=== PATIENT | female | born 1950 | race Caucasian/White ===

== ENCOUNTER 2020-02-24 11:13 | Outpatient (CLI) | payer MEDICARE ==
--- NOTE | 2020-02-24 12:35 | RAD ---
XR Chest Pa Lat STANDARD HISTORY: Simple chronic bronchitis. Cough COMPARISON: None FINDINGS: The heart size is normal. The aorta is tortuous. The lungs are well expanded without focal areas of consolidation, pneumothorax or pleural effusions. There is a masslike density in the right infrahilar region. Further evaluation with CT scan should be performed.
== END 2020-02-24 11:14 | disposition home or self-care (01) ==
LOC: BICRAD 11:13
PROVIDERS: ATTEND Family Medicine
DX: J41.0 Simple chronic bronchitis (principal)
CPT/HCPCS: 36415; 71046; 80053; 80061; 83036; 84439; 84443

== ENCOUNTER 2020-03-08 08:04 | Outpatient (CLI) | payer MEDICARE ==
--- NOTE | 2020-03-08 09:53 | CT ---
Ct chest without contrast: INDICATION: Abnormal chest x-ray. COMPARISON: Correlation is made to chest x-ray of 02/24/2020 which revealed abnormal density in the medial right l ower lung. FINDINGS: CT does confirm a pleural-based mass which is located in a paravertebral location posterior right low er lobe probably superior segment extending to the infrahilar region. This mass encompasses the prox imal right lower lobe bronchus in the infrahilar region. This mass is measured at 5.5 cm AP dimensio n in the axial plane. It does have a paravertebral location; however, no evidence of osseous destruc tion or involvement is identified. Lungs otherwise reveal a calcified granuloma in the peripheral left upper lobe near the pleural surfa ce measuring 6 mm. There are chronic parenchymal changes. No effusion. No evidence of inflammatory infiltrate. There is a hazy ground-glass nodule in the right upper lobe measuring 8 mm in the coronal plane seen on axial image 45 and coronal image 42. There is a 4-5 mm soft tissue nodule in the right mid lung adjacent to the fissure located in the rig ht middle lobe in the mid lung field seen axial 69 and coronal 31. There is a 4 mm nodule in the anterior right mid to lower lung seen on axial image 88 located in the anterior right middle lobe. Mediastinum shows nonspecific lymph nodes. There is a paratracheal lymph node at the chinedu measurin g 1.3 cm. Images through the upper abdomen reveal numerous calcified gallstones layering dependently within the gallbladder fundus. The very last image shows a low-density lesion in the inferior right lobe of th e liver posteriorly measuring 1.3 cm. This is indeterminate and is incompletely evaluated on this st udy. Osseous structures appear unremarkable. IMPRESSION: 1. A pleural-based mass in the posterior medial right lower lobe which has a paravertebral location as described above. This mass is consistent with neoplasm and would be amenable to CT-directed biops y. 2. There are other scattered pulmonary nodules seen as described above. 3. Cholelithiasis. 4. A low-density lesion in the inferior right lobe of the liver which is incompletely evaluated on t his study. POS: AH
== END 2020-03-08 08:05 | disposition home or self-care (01) ==
LOC: BICCT 08:04
PROVIDERS: ATTEND Family Medicine
DX: R91.8 Other nonspecific abnormal finding of lung field (principal); K80.20 Calculus of gallbladder without cholecystitis without obstruction
CPT/HCPCS: 71250

== ENCOUNTER 2020-03-23 08:03 | Outpatient (CLI) | payer MEDICARE ==
--- NOTE | 2020-03-23 08:37 | MMO ---
Bilateral MAMMO Bilat Screen [facility]. CLINICAL HISTORY: Patient is 69 years old and is seen for screening. The patient has the following family history of breast cancer: sister, at age 45. The patient has no personal history of cancer. VIEWS: The views performed were: bilateral craniocaudal with tomosynthesis and bilateral mediolateral oblique with tomosynthesis. This study has been interpreted with the assistance of computer-aided detection. MAMMOGRAM FINDINGS: There are scattered fibroglandular densities. There are benign appearing calcifications seen in both breasts. There are no suspicious masses, suspicious calcifications, or areas of architectural distortion. IMPRESSION: THERE IS NO MAMMOGRAPHIC EVIDENCE OF MALIGNANCY. A ROUTINE FOLLOW-UP MAMMOGRAM IN 1 YEAR IS RECOMMENDED. THE RESULTS OF THIS EXAM WERE SENT TO THE PATIENT. ACR BI-RADS Category 2 - Benign finding MAMMOGRAPHY NOTE: 1. A negative mammogram report should not delay a biopsy if a dominant of clinically suspicious mass is present. 2. Approximately 10% to 15% of breast cancers are not detected by mammography. 3. Adenosis and dense breasts may obscure an underlying neoplasm. Reported by: JANES ROBINS MD Electonically Signed: [id number]
== END 2020-03-23 08:04 | disposition home or self-care (01) ==
LOC: BICMAMMO 08:03
PROVIDERS: ATTEND Family Medicine
DX: Z12.31 Encounter for screening mammogram for malignant neoplasm of breast (principal); Z80.3 Family history of malignant neoplasm of breast
CPT/HCPCS: 77063; 77067

== ENCOUNTER 2020-04-17 09:00 | Outpatient (CLI) | payer MEDICARE ==
--- NOTE | 2020-04-17 11:57 | PET ---
Nuclear medicine FDG PET/CT: (Positron emission tomography and computed tomography) DATE: 04/17/2020 HISTORY: 69-year-old female with "solitary pulmonary nodule." Actually a right lower lobe pulmonary mass. COMPARISON: none TECHNIQUE: IV injection of F-18 fluorodeoxyglucose (FDG) dose: 11.4 mCi. PET scan and attenuation correction CT performed from skull base to proximal thighs. FINDINGS: SUV (standard uptake values) numbers given are maximum SUVs. QCLR used. In the right lower lobe, straddling the superior and basilar segments, broadly abutting the right pos terior medial perivertebral pleura, the large, spiculated, approximately 5.5 x 2.5 x 4.5 cm pulmonary lobular mass has SUV of 17.1. Although the mass abuts the posterior aspect of the right hilum, there is no hypermetabolic activity identified involving the right hilum other than the contact point which cannot be evaluated for involvement. No mediastinal or left hilar hypermetabolic lymphadenopathy. Diffusely increased uptake in the left and right lobes of the thyroid gland, including left posterior paraesophageal thyroid nodule, nonspecific. Otherwise no hypermetabolic cervical lymphadenopathy. No hypermetabolic suspicious activity in abdome n or pelvis. Incidental finding of multiple small calcified gallstones. No evidence of acute cholecystitis. IMPRESSION: 1. Evidence for large 5.5 cm right lower lobe primary lung cancer. 2. No evidence of metastatic disease. 3. Cholelithiasis.
== END 2020-04-17 09:01 | disposition home or self-care (01) ==
LOC: PET 09:00
PROVIDERS: ATTEND Internal Medicine Critical Care Medicine
DX: R91.1 Solitary pulmonary nodule (principal); C34.31 Malignant neoplasm of lower lobe, right bronchus or lung; K80.20 Calculus of gallbladder without cholecystitis without obstruction
CPT/HCPCS: 78815; A9552

== ENCOUNTER 2020-04-25 06:32 | Outpatient (CLI) | payer MEDICARE ==
[2020-04-25 13:52] LABS: Hemoglobin 14.1 g/dL (12.0-16.0); Mean Corpuscular HGB CONC 33.2 G/DL (32.0-36.0); Mean Corpuscular Hemoglobin 31.7 PG (27.0-33.0); Mean Corpuscular Volume 95.5 fl (80.0-100.0); Mean Platelet Volume 11.2 fl (7.4-10.4); Platelet Count 307 10x3/uL (130-400); RBC Distribution Width 12.4 % (11.5-14.5); Red Blood Cell (RBC) Count 4.45 10x6/uL (3.90-5.20); White Blood Cell (WBC) Count 11.3 10x3/uL (4.5-11.0)
[2020-04-25 14:03] LABS: Anion Gap 15 mmol/L (10-20); BUN (Urea Nitrogen) 16 mg/dL (9.8-20.1); Calc. Creatinine Clearance 0 mL/min (70-130); Calcium 9.3 mg/dL (7.8-10.44); Carbon Dioxide 24 mmol/L (23-31); Chloride 103 mmol/L (98-107); Estimated GFR-MDRD 67; Glucose 93 mg/dL (80-115); Sodium 138 mmol/L (136-145)
[2020-04-26 03:08] LABS: SARS-CoV-2 MS2 Positive; SARS-CoV-2 N Gene Negative; SARS-CoV-2 S Gene Negative; SARS-CoV-2 by NAA Not Detected (NotDetected); SARS-CoV-2 orf1ab Negative
--- NOTE | 2020-04-26 07:13 | EKG ---
Test Reason : Blood Pressure : / mmHG Vent. Rate : 081 BPM Atrial Rate : 081 BPM P-R Int : 138 ms QRS Dur : 070 ms QT Int : 380 ms P-R-T Axes : 076 071 054 degrees QTc Int : 441 ms Normal sinus rhythm Septal infarct , age undetermined Abnormal ECG No previous ECGs available Confirmed by DR. Sheron MCKEON ([id number]) on 04/26/2020 7:12:59 AM Referred By: AMALIA Confirmed By:DR. Sheron MCKEON
== END 2020-04-25 06:33 | disposition home or self-care (01) ==
LOC: LABBT 06:32
PROVIDERS: ATTEND Thoracic Surgery (Cardiothoracic Vascular Surgery)
DX: Z01.818 Encounter for other preprocedural examination (principal); R91.8 Other nonspecific abnormal finding of lung field; Z20.828 Contact with and (suspected) exposure to other viral communicable diseases
CPT/HCPCS: 80048; 85027; 93005; U0003; 87635; 93010

== ENCOUNTER 2020-04-25 12:15 | Inpatient (IN) | payer MEDICARE ==
[2020-04-30] MEDS ORDERED: Fentanyl 100 MCG/2 ML VIAL ONE ×3 (06:36→10:13)
[2020-04-30] MEDS ORDERED: Midazolam HCl 2 mg/2 ml Vial ONE (06:36)
[2020-04-30] MEDS ORDERED: Promethazine HCl 25 MG SUPP PR PRN (07:45)
[2020-04-30] MEDS ORDERED: Promethazine HCl 25 MG/ML VIAL IM PRN (07:45)
[2020-04-30] MEDS ORDERED: HYDROcodone/Acetaminophen 5/325 mg Tablet PO PRN (07:45)
[2020-04-30] MEDS ORDERED: diphenhydrAMINE 50 MG/ML VIAL IVP PRN (07:45)
[2020-04-30] MEDS ORDERED: diphenhydrAMINE 50 MG/ML VIAL IM PRN (07:45)
[2020-04-30] MEDS ORDERED: Naloxone HCl 0.4 mg/ml Vial IVP PRN (07:45)
[2020-04-30] MEDS ORDERED: traMADol HCl 50 MG TAB PO PRN ×2 (07:45)
[2020-04-30] MEDS ORDERED: Naloxone HCl 0.4 mg/ml Vial IV PRN (07:45)
[2020-04-30] MEDS ORDERED: Hydrocerin (Eucerin) Cream 120 gm Jar TOP PRN (07:45)
[2020-04-30] MEDS ORDERED: Bupivacaine 0.25% 10 ML VIAL EPIDURAL PRN (07:45)
[2020-04-30] MEDS ORDERED: Ondansetron PF 4 MG/2 ML Vial IVP PRN (07:45)
[2020-04-30] MEDS ORDERED: Zolpidem Tartrate 5 MG TAB PO PRN (07:45)
[2020-04-30] MEDS ORDERED: diphenhydrAMINE 25 MG CAP PO PRN (07:45)
[2020-04-30] MEDS ORDERED: Ondansetron HCl/PF 4 MG/2 ML Vial IVP PRN (09:27)
[2020-04-30] MEDS ORDERED: Labetalol HCl 100 MG/20 ML VIAL ONE (10:05)
[2020-04-30] MEDS ORDERED: Dexamethasone 20 MG/5 ML VIAL ONE (11:14)
[2020-04-30] MEDS ORDERED: Ondansetron PF 4 MG/2 ML Vial ONE (11:14)
[2020-04-30] MEDS ORDERED: Lidocaine 1% PF 5 ML VIAL ONE (11:14)
[2020-04-30] MEDS ORDERED: PROPOFOL 200 MG/20 ML VIAL ONE (11:14)
[2020-04-30] MEDS ORDERED: Rocuronium Bromide 10 MG/ML (10ML VIAL) ONE (11:14)
[2020-04-30] MEDS ORDERED: Glycopyrrolate 0.2 MG/ML 5 ML SYRINGE ONE (11:14)
[2020-04-30] MEDS ORDERED: Ketorolac Tromethamine 30 MG/ML VIAL ONE (11:14)
[2020-04-30] MEDS ORDERED: Nitroglycerin 50 MG/250 ML BOT 250 ML IVPB PRN (11:35)
[2020-04-30] MEDS ORDERED: Phenylephrine 40 MG in Sodium Chloride 0.9% 250 ML 250 ML IVPB PRN (11:35)
--- NOTE | 2020-04-30 11:35 | RAD ---
CHEST 1 VIEW: Date: 04/30/2020 HISTORY: Postop right lobectomy. COMPARISON: 02/24/2020 exam. FINDINGS: Heart size appears slightly enlarged. There are atherosclerotic changes of the aorta. Two right-sided chest tubes are in place. No pneumothorax. There is some minimal subcutaneous emphysema present. The re is what appears to be a surgical clip in the right infrahilar region. IMPRESSION: 1. Postop right lower lobe lobectomy change. 2. Cardiomegaly. 3. Two right chest tubes in place. No pneumothorax. POS: JACQUELINE
[2020-04-30] MEDS: Sodium Chloride 0.9% 1,000 ML IV SCH (12:00)
--- NOTE | 2020-04-30 12:20 | OP ---
DATE OF PROCEDURE: 04/30/2020 PREOPERATIVE DIAGNOSIS: Right lower lobe mass. POSTOPERATIVE DIAGNOSIS: Right lower lobe mass. PROCEDURE PERFORMED: Right thoracotomy with right lower lobectomy. ANESTHESIA: General. ESTIMATED BLOOD LOSS: Less than 100. DESCRIPTION OF PROCEDURE: After adequate anesthesia had been obtained, the patient was placed in the left lateral decubitus position and prepped and draped. The chest was opened and the lung was mobile. A large mass was seen in the posterior hilar area, and the inferior pulmonary ligament was mobilized. Arterial branches to the lower lobe were divided with vascular staple x2. One small branch was doubly clipped. Following this, the bronchus to the lower lobe was divided with the green load and then finally the inferior pulmonary vein was handled with a vascular load. All margins appeared grossly clear and frozen section came back clear on the bronchial margins with a non-small cell cancer. Following checking of the bronchial stump for bleeding, lymph nodes were excised that were visible. There were no R4 nodes visible. Following irrigation, 28 chest tubes x2 were placed and the ribs were reapproximated with double-stranded catgut suture. Muscle layers were loosely reapproximated. Subcutaneous tissue and skin were closed in layers. Job ID: [id number]
[2020-04-30 13:52] VITALS: BMI 28.5
[2020-04-30] MEDS: Ketorolac Tromethamine 30 MG/ML VIAL IVP SCH ×3 (14:17→23:50)
[2020-04-30] MEDS: CEFAZOLIN 2 GM in Premix Bag 1 BAG IVPB SCH ×2 (14:34→22:36)
[2020-04-30] MEDS: fentaNYL Citrate/PF 500 MCG, Bupivacaine 10 ML in Sodium Chloride 0.9% 80 ML EPIDURAL SCH (22:42)
[2020-05-01 04:20] LABS: #Eosinphils 0.1 thou/uL (0.0-0.7); #Lymphocytes 3.1 thou/uL (1.20-3.40); #Monocytes 1.6 thou/uL (0.11-0.59); #Neutrophils 14.2 thou/uL (1.40-6.50); %Basophils 0.1 % (0.0-1.0); %Eosinophils 0.4 % (0.0-10.0); %Lymphocytes 16.2 % (21.0-51.0); %Monocytes 8.6 % (0.0-10.0); %Neutrophils 74.7 % (42.0-75.0); Hemoglobin 12.2 g/dL (12.0-16.0); Mean Corpuscular HGB CONC 33.1 g/dL (32.0-36.0); Mean Corpuscular Hemoglobin 33.1 pg (27.0-31.0); Platelet Count 261 thou/uL (130-400); Red Blood Cell (RBC) Count 3.67 mill/uL (4.20-5.40)
[2020-05-01 04:44] LABS: Anion Gap 14 mmol/L (10-20); BUN (Urea Nitrogen) 19 mg/dL (9.8-20.1); Calc. Creatinine Clearance 56 mL/min (70-130); Calcium 8.7 mg/dL (7.8-10.44); Carbon Dioxide 22 mmol/L (23-31); Chloride 107 mmol/L (98-107); Glucose 121 mg/dL (80-115); Potassium 4.3 mmol/L (3.5-5.1); Sodium 139 mmol/L (136-145)
[2020-05-01] MEDS: CEFAZOLIN 2 GM in Premix Bag 1 BAG IVPB SCH (06:10)
[2020-05-01] MEDS: Sodium Chloride 0.9% 1,000 ML IV SCH (06:19)
[2020-05-01] MEDS: Ketorolac Tromethamine 30 MG/ML VIAL IVP SCH ×3 (06:19→17:13)
--- NOTE | 2020-05-01 07:39 | PRG ---
DATE OF SERVICE: 05/01/2020 The patient is postoperative day #1 from resection of a right lower lobe non-small cell carcinoma. She has no air leak. This morning, her chest tube output is about 450 mL. Her nausea from yesterday is resolved. She has clear lungs bilaterally with some chest tube noises on the right. Her chest x-ray shows good lung expansion with diaphragm elevation as expected from loss of one lobe. Phrenic nerve was avoided during this procedure. We will plan on transferring her up to the surgical floor and begin physical therapy. Job ID: [id number]
--- NOTE | 2020-05-01 08:19 | RAD ---
Portable frontal chest radiograph: 05/01/2020 COMPARISON: 04/30/2020 HISTORY: Status post right thoracotomy FINDINGS: 2 stable right-sided chest tubes are present. No evidence for a significant right-sided pne umothorax. Small volume subcutaneous gas within the right chest wall. Stable elevation of the right hemidiaphragm. Left lung appears clear. IMPRESSION: No significant interval change.
[2020-05-01] MEDS: Polyethylene Glycol 3350 17 GM Packet PO SCH (09:21)
[2020-05-01] MEDS: fentaNYL Citrate/PF 500 MCG, Bupivacaine 10 ML in Sodium Chloride 0.9% 80 ML EPIDURAL SCH (11:31)
--- NOTE | 2020-05-01 14:33 | PRG ---
DATE OF SERVICE: 05/01/2020 SUBJECTIVE: Glenny Briseno was seen in the intensive care unit. She still has a chest tube to suction. She did not have an air leak while I was in the room. OBJECTIVE: VITAL SIGNS: Blood pressure 131/68, heart rate 85. She is afebrile. LUNGS: Clear. HEART: Regular rhythm. ABDOMEN: Soft. LABORATORY DATA: White count 19, hemoglobin 12, platelets 261. Electrolytes were essentially normal. IMPRESSION: Status post lobectomy for [id number] lung cancer, awaiting final pathology. Hopefully, her lymph nodes are negative. This will likely be a T2 tumor based on size, but hopefully it is N0. We will look in on her while she is in the hospital. Job ID: [id number]
[2020-05-01] MEDS ORDERED: Losartan 25 MG TAB PO SCH (20:00)
[2020-05-02] MEDS: fentaNYL Citrate/PF 500 MCG, Bupivacaine 10 ML in Sodium Chloride 0.9% 80 ML EPIDURAL SCH ×2 (00:11→12:57)
[2020-05-02] MEDS: Ketorolac Tromethamine 30 MG/ML VIAL IVP SCH ×2 (00:12→05:40)
[2020-05-02] MEDS: Sodium Chloride 0.9% 1,000 ML IV SCH (00:12)
--- NOTE | 2020-05-02 07:54 | RAD ---
Portable frontal chest radiograph: 05/02/2020 COMPARISON: 05/01/2020 HISTORY: Reevaluate chest following right-sided thoracotomy FINDINGS: 2 stable right chest tubes. Small volume right sided subcutaneous emphysema, decreased in v olume since prior imaging. Elevation of right hemidiaphragm and linear density in the right lung base persists. Questionable very tiny right apical pneumothorax versus artifact. No significant pneum othorax on either side. IMPRESSION: Right chest tubes with questionable tiny apical pneumothorax on the right. Postoperative changes as detailed above.
--- NOTE | 2020-05-02 08:46 | PRG ---
DATE OF SERVICE: 05/02/2020 This is a 69-year-old who is status post right lower lobectomy. Her chest tube output was significant yesterday residing at about 1030 mL this morning, although is very thin fluid. She has no air leak with some fluctuation in her air chamber with breathing and coughing. Her chest x-ray looks good and she has no complaints today. She has good breath sounds bilaterally. We will stop her IV fluids today and continue physical therapy and anticipate chest tube removal as her output decreases. The path report is pending. Job ID: [id number]
[2020-05-02] MEDS: Polyethylene Glycol 3350 17 GM Packet PO SCH (08:51)
[2020-05-02] MEDS: Losartan 25 MG TAB PO SCH (10:30)
--- NOTE | 2020-05-02 18:52 | PRG ---
DATE OF SERVICE: 05/02/2020 SUBJECTIVE: Ms. Grullon is in no distress. She still has a chest tube to suction. OBJECTIVE: VITAL SIGNS: Heart rates in the 80s, blood pressure 133/88, respiratory rates in the teens. LUNGS: She has equal breath sounds. HEART: Regular rhythm. ABDOMEN: Soft. EXTREMITIES: Without edema. IMPRESSION: Status post lobectomy for lung cancer, most likely non-small cell. We are awaiting final pathology and lymph node biopsies. Job ID: [id number]
[2020-05-03] MEDS: fentaNYL Citrate/PF 500 MCG, Bupivacaine 10 ML in Sodium Chloride 0.9% 80 ML EPIDURAL SCH ×2 (01:56→14:18)
[2020-05-03] MEDS: Polyethylene Glycol 3350 17 GM Packet PO SCH (08:19)
--- NOTE | 2020-05-03 09:29 | RAD ---
SINGLE VIEW OF CHEST: Date: 05/03/2020 COMPARISON: 05/02/2020. HISTORY: Status post thoracotomy. FINDINGS: Single view of chest shows normal sized cardiomediastinal silhouette with atherosclerotic calcificati ons in the aorta. There is elevation of the right hemidiaphragm. There are right-sided chest tubes. B iapical pleural thickening is seen. No definite pneumothorax is visualized. There appear to be small bilateral pleural effusions. Increased density in the right lung base may represent atelectasis or an infiltrate. There is a calcified granuloma projecting over the mid left thorax. IMPRESSION: Stable postsurgical changes of the right chest. POS: EAA
[2020-05-03] MEDS: Losartan 25 MG TAB PO SCH (09:59)
--- NOTE | 2020-05-03 16:36 | PRG ---
DATE OF SERVICE: 05/03/2020 SUBJECTIVE: Ms. Grullon is doing well. Today, we discussed her pathology results. She has an adenocarcinoma. There was extensive lymphangitic invasion. The margins were clear. The lymph nodes were positive. There may be a sarcomatous component of the tumor per my discussion with the pathologist. Immuno stains are pending. OBJECTIVE: VITAL SIGNS: She is afebrile, heart rate is 82, respiratory rate 16. She is getting back from a walk with physical therapy. When I got there, chest tubes to water seal. She has equal breath sounds. IMPRESSION: Status post lobectomy for [id number] lung cancer with positive lymph nodes. This is a T3 N3 tumor. I have made a referral to Oncology. They can see her in May, which should be enough time for her to recover from her surgery. Job ID: [id number]
[2020-05-04] MEDS: fentaNYL Citrate/PF 500 MCG, Bupivacaine 10 ML in Sodium Chloride 0.9% 80 ML EPIDURAL SCH (03:15)
[2020-05-04] MEDS ORDERED: Furosemide 40 MG TAB PO SCH (06:45)
--- NOTE | 2020-05-04 06:51 | PRG ---
DATE OF SERVICE: 05/04/2020 SUBJECTIVE: Glenny Briseno is now postoperative day #4 from right lower lobectomy. OBJECTIVE: VITAL SIGNS: Her blood pressure is running in the 150s, resting heart rate 90, saturations excellent on low flow oxygen. Her chest tube output has decreased somewhat and she has no air leak and chest tubes were removed. LABORATORY DATA: Her x-ray is pending. Pathology report was noted and Dr. Pablo has discussion with her regarding this. PLAN: At this time is probable epidural catheter removal today and I have started her on some Flexeril to go along with her oral pain medicines and we will see how she does with that today. Job ID: [id number]
--- NOTE | 2020-05-04 07:59 | RAD ---
Chest AP view INDICATION: Status post thoracotomy COMPARISON: May 03, 2020 4:40 AM FINDINGS: Lungs: Pleural parenchymal changes involving the lower right hemithorax are stable. Chronic lung mar kings are stable. Cardiac silhouette: Mild cardiomegaly is stable. Pulmonary vasculature: Normal Pleural spaces: Right-sided thoracostomy tube has been intervally removed. There is a new small righ t apical pneumothorax Upper abdomen: No abnormality seen. Osseous structures: No acute osseous abnormality. Additional findings: Suspected pain pump overlying the right supraclavicular region is stable. The s ubcutaneous emphysema overlying the lower right chest wall persists. IMPRESSION: Interval removal of the right-sided chest tube with interval development of a small right apical pneu mothorax. Findings were relayed to Dr. Jensen via [place] text at 7:56 AM on May 04, 2020.
[2020-05-04] MEDS: Cyclobenzaprine 10 MG TAB PO SCH ×2 (08:51→20:22)
[2020-05-04] MEDS: Polyethylene Glycol 3350 17 GM Packet PO SCH (08:51)
[2020-05-04] MEDS: Losartan 25 MG TAB PO SCH (08:51)
[2020-05-04] MEDS: HYDROcodone/Acetaminophen 5/325 mg Tablet PO PRN (17:26)
[2020-05-05] MEDS: HYDROcodone/Acetaminophen 5/325 mg Tablet PO PRN (00:11)
[2020-05-05] MEDS: Cyclobenzaprine 10 MG TAB PO SCH (08:56)
[2020-05-05] MEDS: Losartan 25 MG TAB PO SCH (08:57)
[2020-05-05] MEDS: Polyethylene Glycol 3350 17 GM Packet PO SCH (08:57)
[2020-05-05 09:03] VITALS: BP 146/89; TEMP 98.7
--- NOTE | 2020-05-07 08:55 | DIS ---
DATE OF ADMISSION: 04/30/2020 DATE OF DISCHARGE: 05/05/2020 HOSPITAL COURSE: This is a 69-year-old female, admitted with a right lower lobe mass and she underwent a right lower lobectomy on 04/30. Her postoperative course was uneventful, and her tubes were removed on 05/04 and discharged 05/05 on losartan, Flexeril, and tramadol. 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 No comments as to lymph nodes within the lung specimen were made. She will be discharged today to follow up with me in 2 to 3 weeks and then ultimately to follow up with Dr. Marie as an outpatient per Dr. Pablo. Job ID: [id number]
== END 2020-05-05 11:00 | disposition home or self-care (01) | DRG 164 ==
LOC: SURG A 04-30 05:56 → EDSTATUS 04-30 12:15 → CCU 04-30 13:53 → SURG A 05-02 22:39
PROVIDERS: ADMIT Thoracic Surgery (Cardiothoracic Vascular Surgery); ATTEND Thoracic Surgery (Cardiothoracic Vascular Surgery)
PROC: 0BBF0ZZ Excision of Right Lower Lung Lobe, Open Approach (ICD-10-PCS; principal; 2020-04-30)
PROC: 07B70ZZ Excision of Thorax Lymphatic, Open Approach (ICD-10-PCS; 2020-04-30)
DX: C34.31 Malignant neoplasm of lower lobe, right bronchus or lung (principal); C77.1 Secondary and unspecified malignant neoplasm of intrathoracic lymph nodes; I10 Essential (primary) hypertension; Z79.899 Other long term (current) drug therapy; Z88.6 Allergy status to analgesic agent
CPT/HCPCS: 36415; 71045; 80048; 85025; 86850; 86900; 86901; 88305; 88309; 88313; 88331; 88332; 88341; 88342; J0690; J1100; J1642; J1885; J2250; J2405; J2550; J2704; J3010; J3490

== ENCOUNTER 2020-05-21 16:05 | Outpatient (CLI) | payer MEDICARE ==
--- NOTE | 2020-05-21 16:22 | RAD ---
Portable frontal chest radiograph: 05/21/2020 COMPARISON: 02/24/2020 and 05/04/2020 HISTORY: Malignant neoplasm of the right lower lobe bronchus FINDINGS: The patient is status post thoracotomy on the right. The most recent prior chest radiograph was performed at 05/04/2020. Small apical pneumothorax noted on that examination on the right is no longer visualized. There is persistent nonspecific pleural and parenchymal opacity in the right ca rdiophrenic and costophrenic angle regions. There is a nondisplaced lateral right-sided sixth rib fracture. The left lung appears clear. Increased linear interstitial density noted bilaterally. IMPRESSION: The patient is status post right thoracotomy with residual pleural and parenchyma opacity in the right base. Interval resolution of previously noted right apical pneumothorax. Continued follow-up advised.
== END 2020-05-21 16:06 | disposition home or self-care (01) ==
LOC: BICRAD 16:05
PROVIDERS: ATTEND Thoracic Surgery (Cardiothoracic Vascular Surgery)
DX: C34.31 Malignant neoplasm of lower lobe, right bronchus or lung (principal); Z98.890 Other specified postprocedural states
CPT/HCPCS: 70553; 71046; 82565

== ENCOUNTER 2020-06-04 07:56 | Outpatient (CLI) | payer MEDICARE ==
[2020-06-05 02:53] LABS: SARS-CoV-2 MS2 Positive; SARS-CoV-2 N Gene Negative; SARS-CoV-2 S Gene Negative; SARS-CoV-2 by NAA Not Detected (NotDetected); SARS-CoV-2 orf1ab Negative
== END 2020-06-04 07:57 | disposition home or self-care (01) ==
LOC: LABBT 07:56
PROVIDERS: ATTEND Thoracic Surgery (Cardiothoracic Vascular Surgery)
DX: Z01.812 Encounter for preprocedural laboratory examination (principal); R91.8 Other nonspecific abnormal finding of lung field; Z20.822 Contact with and (suspected) exposure to COVID-19; C34.81 Malignant neoplasm of overlapping sites of right bronchus and lung
CPT/HCPCS: 80053; U0003; 36415; 87635

== ENCOUNTER 2020-06-07 05:49 | Day surgery (SDC) | payer MEDICARE ==
[2020-06-05 10:38] VITALS: BMI 26.9
[2020-06-07] MEDS ORDERED: Lidocaine 2% w/Epinephrine 1:200K 20 ML VIAL ONE (06:37)
[2020-06-07] MEDS ORDERED: Bupivacaine PF 0.5% 30 ML VIAL ONE (06:37)
[2020-06-07] MEDS ORDERED: Propofol 500 MG/50 ML VIAL ONE (07:09)
--- NOTE | 2020-06-08 13:51 | OP ---
DATE OF PROCEDURE: 06/07/2020 PREOPERATIVE DIAGNOSIS: Stage IIIA lung cancer. PROCEDURE PERFORMED: Right internal jugular MediPort low-profile. DESCRIPTION OF PROCEDURE: After prepping and draping, IV sedation was given and lidocaine was used to infiltrate the skin in the right side of the neck. Ultrasound-guided puncture of the jugular vein was carried out and a wire placed under fluoroscopy into the right atrium. Following this, a separate incision was made after lidocaine administration over the right anterior pectoral area and then a pocket was created and then more lidocaine and a tunnel created. The catheter was then brought through the tunnel. Following which, the peel-away sheath was introduced over the wire and the catheter was advanced through the peel-away sheath as it was removed. It was positioned in the superior vena cava connected to the MediPort, which was placed in the pocket. The wound was then closed in layers and flush was applied to the MediPort. The patient tolerated the procedure well. Job ID: [id number]
== END 2020-06-07 09:20 | disposition home or self-care (01) ==
LOC: SDC 05:49
PROVIDERS: ATTEND Thoracic Surgery (Cardiothoracic Vascular Surgery)
PROC: 0JH60WZ Insertion of Totally Implantable Vascular Access Device into Chest Subcutaneous Tissue and Fascia, Open Approach (ICD-10-PCS; principal; 2020-06-07)
PROC: 02HV33Z Insertion of Infusion Device into Superior Vena Cava, Percutaneous Approach (ICD-10-PCS; 2020-06-07)
DX: C34.31 Malignant neoplasm of lower lobe, right bronchus or lung (principal); I10 Essential (primary) hypertension; Z79.899 Other long term (current) drug therapy; Z88.5 Allergy status to narcotic agent; Z90.2 Acquired absence of lung [part of]
CPT/HCPCS: 36561; 87070; 87075; 87077; 87186; 87205; C1788; J0690; J1642; J2704; S0020

== ENCOUNTER 2020-09-13 08:11 | Outpatient (CLI) | payer MEDICARE | END 2020-09-13 08:12 | disposition home or self-care (01) | LOC: PET 08:11 | PROVIDERS: ATTEND Internal Medicine Hematology & Oncology | DX: C34.81 Malignant neoplasm of overlapping sites of right bronchus and lung (principal) | CPT/HCPCS: 78815; A9552 ==

== ENCOUNTER 2020-11-23 09:37 | Outpatient (CLI) | payer MEDICARE | END 2020-11-23 09:38 | disposition home or self-care (01) | LOC: ULT 09:37 | PROVIDERS: ATTEND Internal Medicine Hematology & Oncology | DX: R79.89 Other specified abnormal findings of blood chemistry (principal) | CPT/HCPCS: 93975 ==

== ENCOUNTER 2021-01-16 13:57 | Outpatient (CLI) | payer MEDICARE ==
[~2021-01-16 13:57] MED LIST: Magnevist 469MG/ML 20 ML VIAL ONE
== END 2021-01-16 13:58 | disposition home or self-care (01) ==
LOC: BICMRI 13:57
PROVIDERS: ATTEND Internal Medicine Hematology & Oncology
DX: C34.81 Malignant neoplasm of overlapping sites of right bronchus and lung (principal); C79.51 Secondary malignant neoplasm of bone
CPT/HCPCS: 72197; A9579

== ENCOUNTER 2021-03-14 09:40 | Outpatient (CLI) | payer MEDICARE | END 2021-03-14 09:41 | disposition home or self-care (01) | LOC: PET 09:40 | PROVIDERS: ATTEND Internal Medicine Hematology & Oncology | DX: C34.90 Malignant neoplasm of unspecified part of unspecified bronchus or lung (principal) | CPT/HCPCS: 78815; A9552 ==

== ENCOUNTER → 2021-06-13 | Outpatient (CLI) | payer MEDICARE | LOC: PET 10:15 | PROVIDERS: ATTEND Internal Medicine Hematology & Oncology | DX: C34.81 Malignant neoplasm of overlapping sites of right bronchus and lung (principal); C78.00 Secondary malignant neoplasm of unspecified lung; C79.51 Secondary malignant neoplasm of bone; M89.9 Disorder of bone, unspecified; K80.20 Calculus of gallbladder without cholecystitis without obstruction; J90 Pleural effusion, not elsewhere classified | CPT/HCPCS: 78815; A9552 ==

== ENCOUNTER 2021-06-20 12:01 | Outpatient (CLI) | payer MEDICARE | END 2021-06-20 12:02 | disposition home or self-care (01) | LOC: MRI 12:01 | PROVIDERS: ATTEND Radiology Radiation Oncology | DX: C79.31 Secondary malignant neoplasm of brain (principal); C34.90 Malignant neoplasm of unspecified part of unspecified bronchus or lung; I67.82 Cerebral ischemia; H74.93 Unspecified disorder of middle ear and mastoid, bilateral | CPT/HCPCS: 70553; 82565 ==